=== PATIENT | female | born 1960 | race Caucasian/White ===

== ENCOUNTER 2016-07-26 18:26 | Emergency (ER) | payer OTHER ==
[2016-07-26] MEDS ORDERED: IBUPROFEN 600 MG TABLET ONE (21:15)
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
== END 2016-07-26 21:53 | disposition home or self-care (01) ==
LOC: ED 18:26
DX: S89.92XA Unspecified injury of left lower leg, initial encounter (principal); W00.0XXA Fall on same level due to ice and snow, initial encounter; Y93.23 Activity, snow (alpine) (downhill) skiing, snowboarding, sledding, tobogganing and snow tubing; Y92.838 Other recreation area as the place of occurrence of the external cause
CPT/HCPCS: 73564; 99283 ×2; A9270